=== PATIENT | female | born 1960 | race American Indian/Alaskan Native ===

== ENCOUNTER 2017-09-26 15:33 | Emergency (ER) | payer OTHER ==
[2017-09-26 15:43] VITALS: BP 117/75; PULSE 92; RESP 18; TEMP 98; O2SAT 98
[2017-09-26] MEDS ORDERED: Lidocaine 2% Jelly (Uro-Jet) TOP STA (16:06)
[2017-09-26] MEDS ORDERED: Mineral Oil Enema 135 ml RC ONE (16:08)
--- NOTE | 2017-09-26 16:08 | ED PDOC ---
Arrival/HPI - General Chief Complaint: Medical Clearance Time Seen by Provider: 09/26/17 15:57 Historian: Patient - History of Present Illness Narrative History of Present Illness (Text): 09/26/17 16:02 Freddie Orellana is a 57 year old female, whose past medical history includes ulcerative colitis, who presents to the emergency department complaining of being unable to pass a bowel movement due to pain today. Patient states that she ate red meat and now cannot pass a bowel movement. Patient notes that her last bowel movement was yesterday. Patient denies any fever, chills, diarrhea, urinary symptoms, back pain, neck pain, or any other complaints. Time/Duration: 1-3 hours Symptom Course: Unchanged Activities at Onset: Light Context: Home Past Medical History - Provider Review Nursing Documentation Reviewed: Yes - Infectious Disease Hx of Infectious Diseases: None - Cardiac Hx Cardiac Disorders: Yes Hx Hypertension: Yes - Pulmonary Hx Respiratory Disorders: No - Neurological Hx Neurological Disorder: No - HEENT Hx HEENT Disorder: No - Renal Hx Renal Disorder: No - Endocrine/Metabolic Hx Endocrine Disorders: No - Hematological/Oncological Hx Blood Disorders: No - Integumentary Hx Dermatological Disorder: No - Musculoskeletal/Rheumatological Hx Musculoskeletal Disorders: No - Gastrointestinal Hx Gastrointestinal Disorders: Yes Hx Colitis: Yes - Genitourinary/Gynecological Hx Genitourinary Disorders: No - Psychiatric Hx Psychophysiologic Disorder: No Hx Substance Use: No - Anesthesia Hx Anesthesia: No Family/Social History - Physician Review Nursing Documentation Reviewed: Yes Family/Social History: No Known Family HX Smoking Status: Current Some Days Smoker Hx Alcohol Use: No Hx Substance Use: No Allergies/Home Meds Allergies/Adverse Reactions: Allergies No Known Allergies Allergy (Verified 09/26/17 15:45) Home Medications: Home Meds Medication Instructions Recorded Confirmed Cetirizine HCl [Zyrtec] 10 mg PO DAILY 09/26/17 09/26/17 Hydrochlorothiazide [Microzide] 25 mg PO DAILY 09/26/17 09/26/17 Mesalamine [Apriso] 1 tab PO DAILY 09/26/17 09/26/17 Review of Systems - Physician Review All systems were reviewed & negative as marked: Yes - Review of Systems Constitutional: absent: Fevers, Night Sweats Eyes: absent: Vision Changes ENT: absent: Hearing Changes Respiratory: absent: SOB, Cough Cardiovascular: absent: Chest Pain Gastrointestinal: Other (cannot pass a bowel movement) Genitourinary Female: absent: Dysuria, Frequency Musculoskeletal: absent: Arthralgias Skin: absent: Rash, Pruritis Neurological: absent: Headache Endocrine: absent: Diaphoresis Hemo/Lymphatic: absent: Adenopathy Psychiatric: absent: Anxiety, Depression Physical Exam Vital Signs Reviewed: Yes Vital Signs Temp Pulse Resp BP Pulse Ox 09/26/17 15:42 98.0 F 92 H 18 117/75 98 Temperature: Afebrile Blood Pressure: Normal Pulse: Tachycardic Respiratory Rate: Normal Appearance: Positive for: Uncomfortable, Other (distress due to sever rectal pain) Pain Distress: None Mental Status: Positive for: Alert and Oriented X 3 - Systems Exam Head: Present: Atraumatic, Normocephalic Pupils: Present: PERRL Extroacular Muscles: Present: EOMI Conjunctiva: Present: Normal Mouth: Present: Moist Mucous Membranes Neck: Present: Normal Range of Motion Respiratory/Chest: Present: Clear to Auscultation, Good Air Exchange. No: Respiratory Distress, Accessory Muscle Use Cardiovascular: Present: Regular Rate and Rhythm, Normal S1, S2. No: Murmurs Abdomen: Present: Normal Bowel Sounds. No: Tenderness, Distention, Peritoneal Signs Back: Present: Normal Inspection Upper Extremity: Present: Normal Inspection. No: Cyanosis, Edema Lower Extremity: Present: Normal Inspection. No: Edema Neurological: Present: GCS=15, CN II-XII Intact, Speech Normal Skin: Present: Warm, Dry, Normal Color. No: Rashes Psychiatric: Present: Alert, Oriented x 3, Normal Insight, Normal Concentration Medical Decision Making ED Course and Treatment: 09/26/17 16:11 Impression: 57 year old female complaining of being unable to pass a bowel movement due to pain today. Plan: -- Lidocaine -- Fleet mineral oil enema -- Reassess and disposition Progress Notes: 09/26/17 16:48 Patient passed a bowel movement after enema. Enema remains soft and nontender. - Medication Orders Current Medication Orders: Discontinued Medications Lidocaine HCl (Xylocaine 2% (Uro-Jet)) 2 ea TOP ONCE STA Stop: 09/26/17 16:15 Last Admin: 09/26/17 16:47 Dose: 1 applic Comments: applied small amount to rectum as per MD, did not admin full dose. only admin for comfort prior to D/C Mineral Oil (Fleet Mineral Oil Enema) 135 ml RC ONCE ONE Stop: 09/26/17 16:09 Last Admin: 09/26/17 16:27 Dose: 135 ml - Scribe Statement The provider has reviewed the documentation as recorded by the Yanyibe Dora Grace Provider Scribe Attestation: All medical record entries made by the Scribe were at my direction and personally dictated by me. I have reviewed the chart and agree that the record accurately reflects my personal performance of the history, physical exam, medical decision making, and the department course for this patient. I have also personally directed, reviewed, and agree with the discharge instructions and disposition. Disposition/Present on Arrival - Present on Arrival Any Indicators Present on Arrival: No History of DVT/PE: No History of Uncontrolled Diabetes: No Urinary Catheter: No History of Decub. Ulcer: No History Surgical Site Infection Following: None - Disposition Have Diagnosis and Disposition been Completed?: Yes Diagnosis: Constipation Disposition: HOME/ ROUTINE Disposition Time: 16:50 Patient Plan: Discharge Patient Problems: Current Active Problems Problem Status Onset Constipation Acute Condition: IMPROVED Forms: zanda (Nepalese) - Notes Notes (Text): 09/26/17 16:52 see your doctor this week
[2017-09-26] MEDS: Lidocaine 2% Jelly (Uro-Jet) TOP STA ×2 (16:17→16:47)
== END 2017-09-26 16:55 | disposition home or self-care (01) ==
LOC: ED 15:33
DX: K59.00 Constipation, unspecified (principal); I10 Essential (primary) hypertension

== ENCOUNTER 2018-02-02 19:39 | Emergency (ER) | payer OTHER ==
[2018-02-02] MEDS ORDERED: Morphine 4 mg/ml ISec IVP STA (20:08)
--- NOTE | 2018-02-02 20:12 | ED PDOC ---
Arrival/HPI - General Chief Complaint: Back Pain Time Seen by Provider: 02/02/18 19:55 - History of Present Illness Narrative History of Present Illness (Text): 57 y/o F c PMHx ulcerative colitis p/w fall yesterday. Patient states she slipped on the stairs and fell 18 steps, hitting her head without LOC but with 1 episode of vomiting today. Patient states she has pain to the head, neck, upper and lower back, chest, and L leg. She reports that the paramedics refused to take her to the hospital afterwards, which is why she did not come immediately after the fall. She states when she called the paramedics today, they were very nice and brought her here. She denies taking any medication for pain, states she was told not to take any Advil or Tylenol ever due to her colitis. Denies fever, chills, dyspnea, dysuria, numbness, motor weakness. Past Medical History - Infectious Disease Hx of Infectious Diseases: None - Cardiac Hx Cardiac Disorders: Yes Hx Hypertension: Yes - Pulmonary Hx Respiratory Disorders: No - Neurological Hx Neurological Disorder: No - HEENT Hx HEENT Disorder: No - Renal Hx Renal Disorder: No - Endocrine/Metabolic Hx Endocrine Disorders: No - Hematological/Oncological Hx Blood Disorders: No - Integumentary Hx Dermatological Disorder: Yes Hx Eczema: Yes - Musculoskeletal/Rheumatological Hx Musculoskeletal Disorders: No - Gastrointestinal Hx Gastrointestinal Disorders: Yes Hx Colitis: Yes - Genitourinary/Gynecological Hx Genitourinary Disorders: Yes Other/Comment: ECTOPIC - Psychiatric Hx Psychophysiologic Disorder: Yes Hx Depression: Yes Hx Substance Use: No - Surgical History Other/Comment: R/T ECTOPIC SURGERY - Anesthesia Hx Anesthesia: No Family/Social History Family/Social History: No Known Family HX Smoking Status: Former Smoker Hx Alcohol Use: Yes Frequency of alcohol use: Socially Hx Substance Use: No Allergies/Home Meds Allergies/Adverse Reactions: Allergies No Known Allergies Allergy (Verified 02/02/18 19:53) Home Medications: Home Meds Medication Instructions Recorded Confirmed Cetirizine HCl [Zyrtec] 10 mg PO DAILY 09/26/17 09/26/17 Hydrochlorothiazide [Microzide] 25 mg PO DAILY 09/26/17 09/26/17 Mesalamine [Apriso] 1 tab PO DAILY 09/26/17 09/26/17 Review of Systems - Physician Review All systems were reviewed & negative as marked: Yes - Review of Systems Constitutional: absent: Fevers Genitourinary Female: absent: Dysuria Physical Exam - Physical Exam Narrative Physical Exam (Text): Gen: In no acute distress Head: NC Eyes: PERRL ENT: MMM Neck: Midline tenderness Chest: Tenderness CV: Regular rate Lungs: Equal breath sounds bilaterally Abd: Soft, NT Back: Diffuse tenderness Skin: No ecchymosis Extremities: Tenderness to L knee, ankle, and foot. FROM and no tenderness to R leg and bilateral arms Neuro: Alert, moves all extremities Vital Signs Temp Pulse Resp BP Pulse Ox 02/02/18 20:15 98.7 F 97 H 18 149/90 99 Medical Decision Making ED Course and Treatment: Morphine for pain. Patient with diffuse pains with tenderness after 18 step fall , will image all areas of pain. XR Left Knee, 1 or 2 views EXAM DATE/TIME: 02/02/2018 8:08 PM Dictated and Authenticated by: Mary Kate Christensen MD 02/02/2018 11:00 PM Eastern Time ([place] & [place]) IMPRESSION: Osteopenia and degenerative change, no fracture XR Left Ankle Complete, 3 or More Views EXAM DATE/TIME: 02/02/2018 8:08 PM Dictated and Authenticated by: Mary Kate Christensen MD 02/02/2018 11:02 PM Eastern Time ([place] & [place]) IMPRESSION: Osteopenia, no acute fracture or ankle joint effusion XR Left Tibia and Fibula, 2 Views EXAM DATE/TIME: 02/02/2018 8:08 PM Dictated and Authenticated by: Mary Kate Christensen MD 02/02/2018 11:01 PM Eastern Time ([place] & [place]) IMPRESSION: Degenerative change, no fracture XR Left Knee, 1 or 2 views EXAM DATE/TIME: 02/02/2018 8:08 PM Dictated and Authenticated by: Mary Kate Christensen MD 02/02/2018 11:00 PM Eastern Time ([place] & [place]) IMPRESSION: Osteopenia and degenerative change, no fracture CT Head Without Intravenous Contrast EXAM DATE/TIME: 02/02/2018 8:08 PM Dictated and Authenticated by: Mary Kate Christensen MD 02/02/2018 11:12 PM Eastern Time ([place] & [place]) IMPRESSION: Atrophy and small vessel disease, no bleed; multiple small age- indeterminate infarcts as described above; minimal left scalp bruising CT Cervical Spine Without Intravenous Contrast EXAM DATE/TIME: 02/02/2018 8:08 PM Dictated and Authenticated by: Mary Kate Christensen MD 02/02/2018 11:22 PM Eastern Time ([place] & [place]) IMPRESSION: Degenerative change, no fracture CT Chest Without Intravenous Contrast IMPRESSION:No acute intrathoracic injury, no fracture seen CT Abdomen and Pelvis Without Intravenous Contrast EXAM DATE/TIME: 02/02/2018 8:08 PM Dictated and Authenticated by: Mary Kate Christensen MD 02/02/2018 11:41 PM Eastern Time ([place] & [place]) IMPRESSION: No acute solid visceral or bowel injury, no fracture seen Discharged home, f/u primary care, instructed to return to ED for worsening pain , vomiting, confusion, dyspnea, or any other problem. - RAD Interpretation Radiology Orders: 02/02/18 20:08 CERVICAL SPINE W/O CONTRAST [CT] Stat CHEST,ABDOMEN, PELVIS W/O CONT [CT] Stat HEAD W/O CONTRAST [CT] Stat ANKLE LEFT 3 VIEWS ROUTINE [RAD] Stat FOOT LEFT 3 VIEWS ROUTINE [RAD] Stat KNEE LEFT 2 VIEWS (AP & LAT) [RAD] Stat TIBIA FIBULA LEFT [RAD] Stat - Medication Orders Current Medication Orders: Discontinued Medications Morphine Sulfate (Morphine) 4 mg IVP STAT STA Stop: 02/02/18 20:09 Last Admin: 02/02/18 20:34 Dose: 4 mg [facility] Pain Assessment Document 02/02/18 20:34 HI (Rec: 02/02/18 20:34 HI [id number]) Pain Reassessment Is this a pain reassessment? No Sleep Is patient sleeping during reassessment? No Presence of Pain Presence of Pain Yes Pain Scale Used Pain Scale Used Numeric Location Left, Right or Bilateral Left Pain Location Body Site Hip Ankle Description Description Constant Intensity of Pain at present 10 Pain Behavior Moaning Facial Grimacing VS Changes IVP Administration Document 02/02/18 20:34 HI (Rec: 02/02/18 20:34 HI [id number]) Charges for Administration # of IVP Administrations 1 Re-Assess: MIKY Pain Assessment Document 02/02/18 21:34 HI (Rec: 02/02/18 23:18 HI [id number]) Pain Reassessment Is this a pain reassessment? Yes Sleep Is patient sleeping during reassessment? Yes Disposition/Present on Arrival - Present on Arrival Any Indicators Present on Arrival: No History of DVT/PE: No History of Uncontrolled Diabetes: No Urinary Catheter: No History of Decub. Ulcer: No History Surgical Site Infection Following: None - Disposition Have Diagnosis and Disposition been Completed?: Yes Diagnosis: Multiple contusions Disposition: HOME/ ROUTINE Disposition Time: 23:45 Patient Plan: Discharge Condition: STABLE Discharge Instructions (ExitCare): Preventing Falls Prescriptions: Acetaminophen [Tylenol 325mg tab] 2 tab PO Q4H #30 tab Referrals: Marcial Marie APN [Primary Care Provider] - Follow up with primary Forms: Fanvibe (Maori)
--- NOTE | 2018-02-02 23:01 | RAD ---
EXAM: XR Left Knee, 1 or 2 views EXAM DATE/TIME: 02/02/2018 8:08 PM CLINICAL HISTORY: 57 years old, female; Injury or trauma; Fall; Initial encounter; Blunt trauma; Knee; Left; Additional info: Fall, knee pain TECHNIQUE: Frontal and/or lateral views of the left knee. COMPARISON: There are no prior studies for comparison. FINDINGS: Artifacts: There is artifact from patient clothing. Bones/joints: There is no soft tissue swelling. There degenerative changes at the left knee. There is joint space narrowing with osteophyte formation. There is chondrocalcinosis. There is no effusion in the suprapatellar bursa. Bony structures are osteopenic. There are no fractures or dislocations. Soft tissues: See above Vasculature: There are faint vascular calcifications. IMPRESSION: Osteopenia and degenerative change, no fracture
--- NOTE | 2018-02-02 23:02 | RAD ---
EXAM: XR Left Tibia and Fibula, 2 Views EXAM DATE/TIME: 02/02/2018 8:08 PM CLINICAL HISTORY: 57 years old, female; Injury or trauma; Fall; Initial encounter; Blunt trauma; Lower leg; Left; Additional info: Fall, leg pain TECHNIQUE: Frontal and lateral views of the left tibia and fibula. COMPARISON: There are no prior studies for comparison. FINDINGS: Bones/joints: There is no soft tissue swelling. Bony structures are osteopenic. There degenerative changes of the left knee. There is joint space narrowing and osteophyte formation. There is mild narrowing of the ankle joint. There are no fractures or dislocations. Soft tissues: see above Vasculature: There are vascular calcifications. IMPRESSION: Degenerative change, no fracture
--- NOTE | 2018-02-02 23:03 | RAD ---
EXAM: XR Left Ankle Complete, 3 or More Views EXAM DATE/TIME: 02/02/2018 8:08 PM CLINICAL HISTORY: 57 years old, female; Injury or trauma; Fall; Initial encounter; Blunt trauma; Ankle; Left; Additional info: Fall, ankle pain TECHNIQUE: Frontal, lateral and oblique views of the left ankle. COMPARISON: DX - FOOT LEFT 3 VIEWS ROUTINE 2018-02-02 22:13 FINDINGS: Bones/joints: There is no soft tissue swelling at the ankle. There is no effusion in the ankle joint Bony structures are osteopenic. There are no fractures or dislocations of the ankle. There is no effusion in the ankle joint. There are postsurgical changes in the first metatarsal. Soft tissues: see above IMPRESSION: Osteopenia, no acute fracture or ankle joint effusion
--- NOTE | 2018-02-02 23:05 | RAD ---
EXAM: XR Left Foot Complete, 3 or More Views EXAM DATE/TIME: 02/02/2018 8:08 PM CLINICAL HISTORY: 57 years old, female; Injury or trauma; Fall; Initial encounter; Blunt trauma; Foot; Left; Additional info: Fall, foot pain TECHNIQUE: Frontal, lateral and oblique views of the left foot. COMPARISON: There are no prior studies for comparison. FINDINGS: Bones: There is no soft tissue swelling about the foot There are postsurgical changes in the head of the first metatarsal. There are 2 surgical screws. There is medial soft tissue swelling at the first metatarsal phalangeal joint. There is a very mild hallux valgus deformity. Flexion limits evaluation of the phalanges of the second and fifth digits. There is an old healed fracture of the fifth metatarsal. No acute fractures are visualized. Vasculature: There are vascular calcifications. Soft tissues: See above IMPRESSION: Postsurgical changes in the first metatarsal; old healed fifth metatarsal fracture; no acute osseous abnormality
--- NOTE | 2018-02-02 23:12 | CT ---
EXAM: CT Head Without Intravenous Contrast EXAM DATE/TIME: 02/02/2018 8:08 PM CLINICAL HISTORY: 57 years old, female; Injury or trauma; Fall; Initial encounter; Additional info: Fall, head strike, vomit TECHNIQUE: Axial computed tomography images of the head/brain without intravenous contrast. All CT scans at this facility use one or more dose reduction techniques, viz.: automated exposure control; ma/kV adjustment per patient size (including targeted exams where dose is matched to indication; i.e. head); or iterative reconstruction technique. Coronal and sagittal reformatted images were created and reviewed. COMPARISON: There are no prior studies for comparison. FINDINGS: Brain: There is mild prominence of sulci gyri and ventricles. There is no midline shift. There is decreased attenuation in periventricular white matter. There is an age-indeterminate lacunar type infarct in the leonel. There are multiple small age-indeterminate lacunar infarcts in the basal ganglia. There is an age indeterminate right parietal white matter infarct. There are no focal masses. There are no focal hemorrhages. Jerry-white differentiation is visualized. Ventricles: See above Bones: Cranial vault is intact. Soft tissues: There is minimal left posterior parietal scalp bruising Sinuses: There is no acute sinusitis. Ears and mastoids: Middle ears and mastoids are unremarkable. Orbits: Orbital contents are unremarkable. IMPRESSION: Atrophy and small vessel disease, no bleed; multiple small age-indeterminate infarcts as described above; minimal left scalp bruising
--- NOTE | 2018-02-02 23:22 | CT ---
EXAM: CT Cervical Spine Without Intravenous Contrast EXAM DATE/TIME: 02/02/2018 8:08 PM CLINICAL HISTORY: 57 years old, female; Injury or trauma; Fall; Initial encounter; Concussion /head injury; Additional info: Fall, neck pain TECHNIQUE: Axial computed tomography images of the cervical spine without intravenous contrast. All CT scans at this facility use one or more dose reduction techniques, viz.: automated exposure control; ma/kV adjustment per patient size (including targeted exams where dose is matched to indication; i.e. head); or iterative reconstruction technique. Coronal and sagittal reformatted images were created and reviewed. COMPARISON: There are no prior studies for comparison. FINDINGS: Vertebrae: There is straightening of the cervical lordosis. There is no prevertebral soft tissue swelling. There are no fractures. There is multilevel degenerative change. There is narrowing of the predental space. There is disc space narrowing at all levels greatest at C5/C6. There is mild posterior disc bulging C2-C3 and C3-C4. There are osteophytes at multiple levels largest at C4-C5 and C5-C6. Disc spaces are maintained. Facet joints align anatomically. Spinous processes align in the expected fashion. Bone mineralization is normal. Discs/spinal canal/neural foramina: See above. Soft tissues: See above. Thyroid: Thyroid is unremarkable Lung apices: Lung apices are incompletely imaged IMPRESSION: Degenerative change, no fracture
--- NOTE | 2018-02-02 23:41 | CT ---
EXAM: CT Chest Without Intravenous Contrast CLINICAL HISTORY: 57 years old, female; Pain; Other: Chest and back pain; Chest pain; Additional info: Fall, thoracic/lumbar back pain, chest pain TECHNIQUE: Axial computed tomography images of the chest without intravenous contrast. All CT scans at this facility use one or more dose reduction techniques, viz.: automated exposure control; ma/kV adjustment per patient size (including targeted exams where dose is matched to indication; i.e. head); or iterative reconstruction technique. Coronal and sagittal reformatted images were created and reviewed. COMPARISON: There are no prior studies for comparison. FINDINGS: Lungs and pleural spaces: Trachea and main bronchi are patent.There is no pneumothorax. There is no focal consolidation or contusion. There is dependent atelectasis bilaterally. There are no effusions. Heart and vasculature: Heart size is normal. There is no pericardial effusion. Distal ascending aorta is mildly prominent, approximately 4 cm in diameter. There are calcifications in the aortic root. Coronary artery calcifications.Pulmonary vessels are unremarkable. Mediastinum: There is no pneumomediastinum. The esophagus is unremarkable. There no pathologically enlarged mediastinal or hilar nodes. Thyroid: Thyroid is not optimally demonstrated. Bones/joints: There are degenerative changes in the osseus structures. There are no acute osseous abnormalities Soft tissues: unremarkable Upper abdomen: Refer to following report for abdominal findings IMPRESSION: No acute intrathoracic injury, no fracture seen EXAM: CT Abdomen and Pelvis Without Intravenous Contrast EXAM DATE/TIME: 02/02/2018 8:08 PM CLINICAL HISTORY: 57 years old, female; Pain; Other: Chest and back pain; Chest pain; Additional info: Fall, thoracic/lumbar back pain, chest pain TECHNIQUE: Axial computed tomography images of the abdomen and pelvis without intravenous contrast. All CT scans at this facility use one or more dose reduction techniques, viz.: automated exposure control; ma/kV adjustment per patient size (including targeted exams where dose is matched to indication; i.e. head); or iterative reconstruction technique. Coronal and sagittal reformatted images were created and reviewed. COMPARISON: There are no prior studies for comparison. FINDINGS: Artifacts: Streak artifact degrades image quality. Lower thorax: Refer to prior report for chest findings ABDOMEN: Liver: unremarkable Gallbladder and bile ducts: unremarkable Pancreas: unremarkable Spleen: unremarkable Adrenals: unremarkable Kidneys and ureters: There is a 2 cm right renal cyst. Kidneys and ureters are otherwise unremarkable. Stomach and bowel: Stomach is incompletely distended. Rotation is normal. There is no small bowel obstruction. Ileocecal region is unremarkable. Terminal ileum is unremarkable. There are clips at the base of the cecum. There is mild fatty infiltration of the right colon wall.Colon is incompletely distended which limits evaluation. PELVIS: Appendix: Surgically absent Bladder: unremarkable Reproductive: Uterus and adnexal structures are unremarkable. ABDOMEN and PELVIS: Intraperitoneal space:There is no free air.There is no free fluid. Bones: There are degenerative changes in the osseus structures. There are Schmorl's nodes greatest L3 and L4. Soft tissues: There is a small fat containing umbilical hernia. Vasculature: There are calcified phleboliths. There are vascular calcifications. Lymph nodes: There is no pathologic adenopathy. IMPRESSION: No acute solid visceral or bowel injury, no fracture seen
[2018-02-03 00:11] VITALS: BP 142/88; PULSE 92; RESP 16; TEMP 97.8; O2SAT 98
== END 2018-02-02 23:57 | disposition home or self-care (01) ==
LOC: ED 19:39
DX: S00.03XA Contusion of scalp, initial encounter (principal); W10.9XXA Fall (on) (from) unspecified stairs and steps, initial encounter; Y92.9 Unspecified place or not applicable
CPT/HCPCS: 70450; 71250; 72125; 73560; 73590; 73610; 73630; 74176; 96374; 99283; J2270